=== PATIENT | male | born 1980 | race Caucasian/White ===

== ENCOUNTER 2019-04-29 10:47 | Outpatient (RCR) | payer BC, SELFPAY ==
--- NOTE | 2019-04-29 11:30 | HMH.PTOPEV ---
PT Outpatient Evaluation Rehab PT Outpatient Evaluation Start: 04/29/19 10:48 Freq: Status: Active Protocol: Document 04/29/19 11:18 DONELL (Rec: 04/29/19 11:29 DONELL [id number]) Electronically Signed By Rey Davis, PT 04/29/19 11:18 Outpatient Therapy Subjective History Subjective History Pt is a 38 year old male presenting to outpatient PT with reports of acute low back pain with LLE radicular symptoms starting approximatley 1 month ago. Pt reports onset of pain began while performing prolonged bending activity. I was changing a tire. No recent diagnostics to report. He is currently taking NSAID's, muscle relaxers and steriods prescribed for back pain. It' s gotten a lot better over the past week. No other comorbidities to report. Chief Complaint Pain,Stiff,Paresthesia Symptom Type Ache,Sharp,Tingling,Shooting Symptoms Relieved By Rest/Positioning,Prescription Meds Symptoms Aggravated By Sitting,Bending/Stooping Prior Functional Limitations None Current Functional Limitations Lifting,Housework,Driving, Sitting,Bending/Stooping Symptom Description Constant but Variable Level of pain today (0-10) 6 Pain scale - at its best (0-10) 6 Pain scale - at its worst (0-10) 9 Lumbopelvic Eval Posture Thoracic Spine Posture Standing Position Increased Kyphosis Lumbar Spine Posture Standing Position Decreased Lordosis Palapation tenderness bilateral Lumbar/Sacral Palpation Findings Tenderness Lumbar/Sacral Palpation Overall Comment B PSIS Accessory Movement L5 left S1 left Range of Motion Lumbar Spine Active Flexion Range of 85 Motion (degrees) Lumbar Spine Active Extension Range of 10 Motion (degrees) Left Lumbar Spine Lateral Flexion Active 20 Range of Motion (degrees) Right Lumbar Spine Lateral Flexion 25 Active Range of Motion (degrees) Lumbar Spine ROM Limitations Soft Tissue Tightness,Bony Restriction Manual Muscle Test Bilateral Knee Extension Strength Grade 5 Normal Knee Flexion Strength Grade 5 Normal Extensor Hallucis Longus Strength Grade 5 Normal Ankle Dorsiflexion Strength Grade 5 Normal Gastronemius/Soleus Strength Grade 5 Normal DTR
== END 2019-04-29 10:50 | disposition home or self-care (01) ==
LOC: PT 10:47
PROVIDERS: Visit Provider Family Medicine
DX: M62.830 Muscle spasm of back (principal)
CPT/HCPCS: 97163

== ENCOUNTER 2020-06-29 05:26 | Emergency (ER) | payer BC, SELFPAY ==
[2020-06-29 05:36] VITALS: BP 131/87; PULSE 87; RESP 16; TEMP 36.7; O2SAT 96; BMI 28.7
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
[2020-06-29 06:06] VITALS: BP 113/72; PULSE 65; RESP 14; TEMP 36.7; O2SAT 99
== END 2020-06-29 06:09 | disposition home or self-care (01) ==
PROVIDERS: Emergency Provider Emergency Medicine
DX: M54.12 Radiculopathy, cervical region (principal); F17.210 Nicotine dependence, cigarettes, uncomplicated
CPT/HCPCS: 99281

== ENCOUNTER 2024-02-16 09:28 | Emergency (ER) | payer BC, SELFPAY ==
[2024-02-16 09:35] VITALS: BP 132/79; PULSE 66; RESP 20; TEMP 36.6; O2SAT 98; BMI 25.0
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
[2024-02-16] MEDS: METHYLPREDNISOLONE SOD SUCC 125MG VIAL 125 MG IM (10:04)
[2024-02-16 10:10] VITALS: BP 132/79; PULSE 66; RESP 20; TEMP 36.6; O2SAT 98
== END 2024-02-16 10:20 | disposition home or self-care (01) ==
PROVIDERS: Emergency Provider Nurse Practitioner; PCP Family Medicine
DX: M54.31 Sciatica, right side (principal); M62.838 Other muscle spasm; M54.2 Cervicalgia; F17.210 Nicotine dependence, cigarettes, uncomplicated
CPT/HCPCS: 96372; 99204; 99212; G0463

== ENCOUNTER 2024-08-10 09:45 | Outpatient (CLI) | payer BC, SELFPAY ==
[2024-08-13 10:00] LABS: Miscellaneous Test SCANNED IMAGE
== END 2024-08-10 23:59 | disposition home or self-care (01) ==
LOC: LAB 09:49
DX: Z02.9 Encounter for administrative examinations, unspecified (principal)

== ENCOUNTER 2024-09-25 08:32 | Emergency (ER) | payer BC, SELFPAY ==
[2024-09-25 08:34] VITALS: BP 141/93; PULSE 85; RESP 18; TEMP 36.7; O2SAT 95; BMI 25.1
--- NOTE | 2024-09-25 08:55 | PC.NURSE ---
dr melendez at bedside
[2024-09-25 08:56] VITALS: BP 130/95; PULSE 79; O2SAT 96
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
[2024-09-25] MEDS: ACETAMINOPHEN 500MG TAB 1000 MG PO (09:03)
[2024-09-25] MEDS: KETOROLAC 30MG/ML VIAL 15 MG IV (09:11)
[2024-09-25] MEDS: METHOCARBAMOL 500MG TABLET 500 MG PO (09:11)
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
[2024-09-25 10:00] VITALS: BP 147/78; PULSE 61; O2SAT 94
[2024-09-25 10:00] LABS: Basophils # 0.1 K/mm3 (0-0.2); Eosinophils # 0.2 K/mm3 (0.0-0.4); Eosinophils % 1.9 % (0.1-12.0); Hematocrit 43.9 % (42.0-52.0); Hemoglobin 15.4 g/dL (14.1-18.0); Lymphocytes # 1.9 K/mm3 (0.7-4.5); Lymphocytes % 24.9 % (10-50); Mean Corpuscular HGB Conc 35.1 g/dL (31.8-35.4); Mean Corpuscular Hemoglobin 31.2 pg (27.0-31.2); Mean Corpuscular Volume 88.6 fl (80-94); Mean Platelet Volume 10.4 fl (7.4-10.4); Monocytes # 0.4 K/mm3 (0.1-1.0); Monocytes % 4.8 % (1.7-9.3); Neutrophils # 5.2 K/mm3 (1.8-7.8); Neutrophils % 67.4 % (37.0-80.0); Platelet Count 181 K/mm3 (142-424); Red Blood Count 4.96 M/mm3 (4.60-6.20); Red Cell Distribution Width 13.3 % (11.5-17.5); White Blood Count 7.7 K/mm3 (4.8-10.8)
[2024-09-25 10:09] LABS: Alanine Aminotransferase 33 U/L (12-78); Albumin Level 4.1 g/dl (3.5-5.0); Albumin/Globulin Ratio 1.9 (1.1-1.8); Alkaline Phosphatase 70 U/L (38-126); Anion Gap 10.7 mEq/L (5-15); Aspartate Amino Transferase 25 U/L (17-59); Bilirubin,Total 0.5 mg/dl (0.2-1.3); Blood Urea Nitrogen 20 mg/dl (9-20); Calcium 9.2 mg/dl (8.4-10.2); Carbon Dioxide 26 mmol/L (22.0-30.0); Chloride 109 mmol/L (98-107); Creatinine Clearance Estimated 110 mL/min (50-200); Estimated Glomerular Filt Rate 82 ml/min (>60); GFR (African American) 99 ML/MIN (>60); Globulin 2.2 g/dL (1.3-3.2); Glucose 95 mg/dl (74-100); Potassium 3.7 mmoL/L (3.5-5.1); Sodium 142 mmol/L (136-145); Total Protein,Serum 6.3 g/dl (6.3-8.2)
[2024-09-25 10:30] VITALS: BP 137/75; PULSE 58
[2024-09-25 11:02] VITALS: BP 135/78; PULSE 60; RESP 18; TEMP 36.7; O2SAT 98
== END 2024-09-25 11:05 | disposition home or self-care (01) ==
PROVIDERS: Emergency Provider Emergency Medicine; PCP Family Medicine
DX: S39.012A Strain of muscle, fascia and tendon of lower back, initial encounter (principal); S16.1XXA Strain of muscle, fascia and tendon at neck level, initial encounter; M54.2 Cervicalgia; M54.9 Dorsalgia, unspecified; V49.88XA Car occupant (driver) (passenger) injured in other specified transport accidents, initial encounter; Y93.89 Activity, other specified; Y92.9 Unspecified place or not applicable
CPT/HCPCS: 70450; 71250; 72125; 72128; 72131; 74176; 80053; 85025; 96374; 99284; J1885

== ENCOUNTER 2024-12-23 08:37 | Outpatient (CLI) | payer BC, SELFPAY ==
[2024-12-27 16:13] LABS: Miscellaneous Test SCANNED REPORT
== END 2024-12-23 23:59 | disposition home or self-care (01) ==
LOC: LAB 08:39
PROVIDERS: PCP Family Medicine
DX: F41.0 Panic disorder [episodic paroxysmal anxiety] (principal); F41.1 Generalized anxiety disorder; Z79.899 Other long term (current) drug therapy